=== PATIENT | male | born 1945 | race Caucasian/White ===

== ENCOUNTER 2023-08-12 20:54 | Emergency (ER) | payer OTHER, SELFPAY ==
[2023-08-12 20:55] VITALS: BP 131/78
[2023-08-12 21:11] LABS: % Basophils 1.2 % (0-2); % Eosinophils 0.5 % (0-6); % Immature Granulocytes 0.3 % (0-0.5); % Lymphocytes 12.4 % (20.5-51.1); % Monocytes 7.1 % (1.7-9.3); % Neutrophils 78.5 % (42.2-75.2); Absolute Basophils 0.2 10^3/uL (0-0.2); Absolute Eosinophils 0.1 10^3/uL (0-0.7); Absolute Immature Granulocytes 0.1 10^3/uL (0-0.05); Absolute Lymphocytes 1.8 10^3/uL (1.2-3.4); Absolute Neutrophils 11.4 10^3/uL (1.4-6.5); Hematocrit 43.3 % (39.0-52.0); Hemoglobin 15.4 g/dL (13.0-18.0); Mean Corp Hgb Conc. 35.6 g/dL (33.0-37.0); Mean Corpuscular Hgb 28.8 pg (27.0-31.0); Mean Corpuscular Volume 80.9 fL (80.0-94.0); Nucleated Red Blood Cells % 0 % (-); Platelet Count 306 10^3/uL (130-400); Red Blood Cell Count 5.35 10^6/uL (4.70-6.10); Red Cell Dist. Width 12.9 % (11.5-14.5); White Blood Cell Count 14.5 10^3/uL (4.8-10.8)
[2023-08-12 21:30] LABS: ALT (SGPT) 24 U/L (0-50); AST (SGOT) 22 U/L (17-59); Albumin 4.7 g/dl (3.5-5.0); Alkaline Phosphatase 89 U/L (38-126); Blood Urea Nitrogen 15 mg/dl (9-20); Calcium 10.1 mg/dl (8.4-10.2); Carbon Dioxide 25 mmol/L (22-30); Chloride 100 mmol/L (98-107); Glucose 121 mg/dl (70-99); Potassium 4.6 mmol/L (3.5-5.1); Sodium 137 mmol/L (135-145); Total Protein 7.9 g/dl (6.3-8.2); eGFR > 60.00
[2023-08-12 21:34] VITALS: BP 149/66
[2023-08-12 22:00] VITALS: BP 178/83
--- NOTE | 2023-08-12 22:13 | ED.GENMED ---
History of Present Illness
General
Chief Complaint: Fall
Source: patient and records
Exam Limitations: none
Time Seen by Provider: 08/12/23 21:31
Nursing documentation reviewed up to this point in time: agreed with
Travel History
Have you had any contact with someone who has COVID-19?: No
Do you have any symptoms of coronavirus? Fever > 100 degrees, chills, cough, shortness of breath, sore throat, loss of taste or smell, muscle aches, or headache?: No
History of Present Illness
History of Present Illness:
78-year-old male with a past medical history of hypertension, CVA, alcohol abuse who presents to the emergency room via EMS for evaluation after a fall. Patient apparently was walking on the sidewalk and had a witnessed trip and fall by bystander.
He says he fell down to his left knee and struck his knee on the ground. Apparently was witnessed having difficulty bearing weight on the left leg and EMS was called to the scene. Patient says he has some mild pain in the left knee but denies any
other complaints. He says he did not hit his head and denies any headache. He denies any nausea. He denies any chest pain, back pain, neck pain or abdominal pain. Denies any numbness or weakness in his extremities. He denies being on blood
thinners.
Past History
Past History
ED Past Medical History: CVA and HTN
Social History
Tobacco: Smoker
Alcohol: Chronic alcoholic
Drug: None
Living: with family
Review of Systems
Review of Systems
All Other Systems: ROS reviewed and negative except as documented in HPI and ROS
Respiratory: Denies trouble breathing
Cardiac: Denies chest pain
ABD/GI: Denies abdominal pain
: Denies flank pain
Musculoskeletal: Reports joint pain (Left knee pain); Denies neck pain or back pain
Neurological: Denies dizzy, headache, weakness or numbness
Phy Exam
Physical Exam
Physical Exam:
General: Awake, alert, oriented to person and place but was confused about time; no acute distress
Head: Normocephalic, atraumatic
Eyes: Conjunctiva normal, EOMI, pupils equal round reactive to light bilaterally
Throat: Airway intact, handling secretions
Neck: Trachea midline, no cervical spine tenderness
Lungs: Clear to auscultation bilaterally, no wheezing, rales, rhonchi
Heart: Regular rate and rhythm, no murmurs, gallops, or rubs; no chest wall tenderness
Abd: Soft, non distended, nontender
Back: No signs of trauma to the back or flank, no tenderness in the thoracic or lumbar spine
Neuro: Cranial nerves grossly intact, speech fluid
Skin: Minor abrasion of the left knee
Extremities: Patient has minor left knee abrasion but no joint effusion or swelling and no significant hematoma; he has some very mild patellar tenderness but no joint line tenderness and again no joint effusion, full range of motion of the left
knee to extremes of flexion and extension with minimal discomfort; he has no pain or tenderness in the rest of his extremities and has good pulses in all extremities
Scores
Heart Failure Risk
Heart Failure Risk Score: Not Applicable
Heart Score for Chest Pain Patients
STEMI patient?: Not applicable
Withdrawal Assessment of Alcohol
Withdrawal Assessment Completed?: Not applicable
Course
Orders/Labs/Results
Orders:
Orders
08/12/23 21:06
Alcohol Urgent
Complete Blood Count/With Diff Urgent
Comprehensive Metabolic Panel Urgent
08/12/23 21:50
CR Knee - Left 4 Or More View* Urgent
Comment:
Reason For Exam: fall onto knee
08/12/23 21:51
Electrocardiogram (*1) Urgent
Reason for Study: Fatigue / Weakness
CT Head W/o Iv Contrast Urgent
Comment:
Reason For Exam: fall, confused
EKG- Treatment ONCE
08/12/23 22:14
Add On- LAB Urgent
Tests Added?: alcohol
Abnormal Lab Results
08/12/23
21:06
WBC 14.5 H 10^3/uL
(4.8-10.8)
Abs Immat Gran (auto) 0.1 H 10^3/uL
(0-0.05)
Absolute Neuts (auto) 11.4 H 10^3/uL
(1.4-6.5)
Absolute Monos (auto) 1.0 H 10^3/uL
(0.1-0.6)
Neutrophils % 78.5 H %
(42.2-75.2)
Lymphocytes % 12.4 L %
(20.5-51.1)
Glucose 121 H mg/dl
(70-99)
08/12/23 21:06
08/12/23 21:06
Vital Signs
Initial and Last Documented VS:
Initial Vital Signs
Temp Pulse Resp BP Pulse Ox
36.6 C 105 19 131/78 95
08/12/23 20:55 08/12/23 20:55 08/12/23 20:55 08/12/23 20:55 08/12/23 20:55
Last Documented Vital Signs
Temp Pulse Resp BP Pulse Ox
36.6 C 105 19 131/70 96
08/12/23 20:55 08/12/23 20:55 08/12/23 20:55 08/12/23 23:00 08/12/23 22:44
MDM/Problems Addressed
Differential Diagnosis Includes:
Knee pain: Contusion, fracture somewhat less likely
MDM/Problems Addressed:
78-year-old male presents for evaluation after a minor trip and fall witnessed by bystander with minor left knee injury. No other injuries reported. He is tachycardic but otherwise normal vitals. Exam as above. He had lab work sent off including
a CBC which showed a slight leukocytosis but was otherwise unremarkable, CMP within acceptable range. Added on alcohol level as he was slightly confused about month and year�unclear if this is baseline with history of chronic alcohol abuse or if he
could be acutely intoxicated (clinically does not seem markedly intoxicated). Add on CT head. Check x-ray of the knee. Will try to reach out to family. Monitor closely reassess at the above.
Reviewed records from prior visits and it appears the patient has had very similar presentations in the past including this mild confusion about month/year�most recently was here in 2020 and had the same presentation with a minor fall, thought the
year was 1971. Was intoxicated at that time ultimately discharged home after observation. Awaiting CT and x-ray, alcohol level. Will continue to monitor.
Reviewed personal contacts with patient for future phone calls:
Maurice (son): [phone] // [phone]
Lanie (ex and long time friend): [phone]
Markus (friend/neighbor): [phone]
CT head no acute pathology. X-ray of the knee shows no acute fracture on my review. Patient was able to get up from the bed and weight-bear using his cane without any limp or assistance and said he had no pain. He is awake and alert only slightly
confused about the year which I suspect is likely his baseline, does not seem to be acutely confused and is asking when he can go home. I do not think he is safe to navigate home on his own and I think family should be involved in
disposition/pickup. Unfortunately I was not able to reach his son�no answer on repeated attempts. I was however able to speak to Lanie at the number listed above�she confirmed that he does have some mild dementia and that the mental status I
described here is baseline. Unfortunately she was in [place] and has not been picked up. She tried to reach out to son/[id number] unsuccessfully; will hold patient here until able to reach family for pickup.
Chronic conditions affecting care:
Alcohol use
*Radiology
Radiology exam reviewed: radiology read reviewed
*Pulse Oximetry
Patient hypoxic: no
*EKG
Interpreted by ED Provider?: Yes
Heart Rate: 94
Rate: normal
Rhythm: sinus
[place]: normal axis
Interval: normal interval
QRS Pattern: normal QRS
Ischemia: no ischemia
*Critical Care Note
Total Time (30-74mins, 75-104mins- exclusive of procedures): Not Applicable
Data Reviewed
Source: patient, records and ambulance crew
ED Attending Note
-
Portions of this chart may have been created with voice recognition software.� Occasional wrong word or��sound alike� substitutions may have occurred due to the inherent limitations of voice recognition software.
Discharge Plan
Departure
Patient Disposition: Home (Routine Discharge)
Date of Disposition: 08/13/23
Time of Disposition: 00:37
Admit to doctor: CALL SON FOR PICKUP IN AM ([phone])
Patient with high blood pressure during this ER visit?: No
Discharge Problem:
Abrasion of knee, Contusion of knee
Instructions: Skin Abrasions (DC)
Prescriptions:
No Action
Unobtainable
0
Referrals:
UNKNOWN - PT DOES,NOT KNOW [Family Provider] -
Activity Restrictions/Additional Instructions:
Thank you for visiting the Emergency Department at [facility].
1. Please schedule a follow up appointment as directed. Call first thing tomorrow morning to make an appointment.
2. If indicated, please take your medications as instructed and indicated on discharge paperwork.
3. If any of your symptoms do not improve, or persist, or become more severe within 6-12 hours, please return to the emergency department for further care.
4. Please return to the emergency department if you develop a headache, neck pain/stiffness, fever greater than 100.4F, chest pain, shortness of breath, persistent nausea, vomiting, slurred speech, difficulty walking, numbness/tingling, weakness,
signs of infection or any other symptoms that are worrisome to you.
Please call [phone] if you have any questions.
Interventions
Interventions:
*Risk Screen - Suicide Last Done: 08/12/23 22:00
*General Assessment Last Done: 08/12/23 20:58
*Neglect/Abuse Screening Last Done: 08/12/23 22:00
ED- Fall Risk Assessment Last Done: 08/12/23 22:46
*ED COVID-19 Vaccine History Last Done: 08/12/23 20:58
ED-Musculoskeletal Assessment Last Done: 08/12/23 23:03
ED- Neurological Assessment Last Done: 08/12/23 23:03
ED-Skin Assessment Last Done: 08/12/23 23:03
Discharge Date and Time
Print Language: ESTONIAN
[2023-08-12 22:56] LABS: Alcohol None Detected
[2023-08-12 23:00] VITALS: BP 131/70
[2023-08-13 07:34] VITALS: BP 164/65
== END 2023-08-13 09:42 | disposition home or self-care (01) ==
LOC: EMR 20:54
PROVIDERS: Student in an Organized Health Care Education/Training Program; EMERGENCY PHYSICIAN Emergency Medicine
DX: S80.212A Abrasion, left knee, initial encounter (principal); S80.02XA Contusion of left knee, initial encounter; W01.0XXA Fall on same level from slipping, tripping and stumbling without subsequent striking against object, initial encounter; I10 Essential (primary) hypertension; F17.200 Nicotine dependence, unspecified, uncomplicated; F03.A0 Unspecified dementia, mild, without behavioral disturbance, psychotic disturbance, mood disturbance, and anxiety
CPT/HCPCS: 99285; 70450; 73564; 80053; 82077; 85025; 93005

== ENCOUNTER 2023-08-15 12:15 | Inpatient (IN) | payer OTHER, SELFPAY ==
[2023-08-14 23:04] VITALS: BP 167/82; BMI 25.2
[2023-08-14 23:07] VITALS: BP 167/82
[2023-08-14 23:22] LABS: % Basophils 1.3 % (0-2); % Eosinophils 0.7 % (0-6); % Immature Granulocytes 0.5 % (0-0.5); % Lymphocytes 11.3 % (20.5-51.1); % Monocytes 7.1 % (1.7-9.3); % Neutrophils 79.1 % (42.2-75.2); Absolute Basophils 0.2 10^3/uL (0-0.2); Absolute Eosinophils 0.1 10^3/uL (0-0.7); Absolute Immature Granulocytes 0.1 10^3/uL (0-0.05); Absolute Lymphocytes 1.7 10^3/uL (1.2-3.4); Absolute Monocytes 1.1 10^3/uL (0.1-0.6); Absolute Neutrophils 11.7 10^3/uL (1.4-6.5); Hematocrit 42.9 % (39.0-52.0); Mean Corpuscular Hgb 28.6 pg (27.0-31.0); Mean Corpuscular Volume 81.7 fL (80.0-94.0); Mean Platelet Volume 8.9 fL (7.4-10.4); Nucleated Red Blood Cells % 0 % (-); Platelet Count 248 10^3/uL (130-400); Red Blood Cell Count 5.25 10^6/uL (4.70-6.10); Red Cell Dist. Width 12.8 % (11.5-14.5); White Blood Cell Count 14.7 10^3/uL (4.8-10.8)
[2023-08-14 23:34] LABS: ALT (SGPT) 18 U/L (0-50); AST (SGOT) 25 U/L (17-59); Albumin 4.7 g/dl (3.5-5.0); Alkaline Phosphatase 71 U/L (38-126); Blood Urea Nitrogen 17 mg/dl (9-20); Calcium 9.6 mg/dl (8.4-10.2); Carbon Dioxide 22 mmol/L (22-30); Chloride 97 mmol/L (98-107); Estimated Creatinine Clearance 63 ml/min; Glucose 100 mg/dl (70-99); Potassium 3.9 mmol/L (3.5-5.1); Sodium 134 mmol/L (135-145); Total Bilirubin 0.9 mg/dl (0.2-1.3); Total Protein 7.8 g/dl (6.3-8.2); eGFR > 60.00
[2023-08-14 23:41] LABS: Alcohol 16 mg/dl
[2023-08-15] VITALS (22 sets, daily range): BP systolic 125–171; BP diastolic 62–107; PULSE 74–75; O2SAT 98
--- NOTE | 2023-08-15 06:23 | ED.GENMED ---
History of Present Illness
General
Chief Complaint: Change in Mental Status
Source: patient, ambulance crew, previous radiology exam (Unremarkable x-ray of the knee August 13, 2023. CT of the head August 13, 2023 showing old lacunar infarcts and moderate cortical atrophy similar and unchanged from previous CT September 2020) and
previous hospital records (ED visit from 2 days ago with somewhat similar complaints although at that time had tripped and fallen with abrasion left anterior knee.)
Exam Limitations: none
Time Seen by Provider: 08/15/23 04:13
Nursing documentation reviewed up to this point in time: agreed with
Travel History
Have you had any contact with someone who has COVID-19?: No
Do you have any symptoms of coronavirus? Fever > 100 degrees, chills, cough, shortness of breath, sore throat, loss of taste or smell, muscle aches, or headache?: No
History of Present Illness
History of Present Illness:
This is a 78-year-old gentleman who resides independently in [place] the [address]. He has history of hypertension, previous CVAs and admits to near daily alcohol consumption and frequent visitor of local [employer].
He states he was at a local bar throughout the evening tonight and admits to consuming only 3 beers throughout the evening. He was sent to the ED by EMS with concern for confusion and generalized weakness. Patient denies fall. He is unsure why he
was brought to the ED but admits that 'I like it here, you all are nice'
He was evaluated in this ED just 2 and half days ago where he suffered a trip and fall injuring his left anterior knee. He was noted to be mildly confused at that time as well along with similar mild confusion during ED visit September 2020 and March
2019.
Left knee x-ray was unremarkable and CT of the head shows old lacunar infarcts, atrophy but stable and unchanged from previous CAT scan.
He has been ambulating with cane assistance and denies recurrent falls since that fall 3 days ago.
He denies headache, denies neck nor back pain, no chest pain or coughing or shortness of breath.
He generally receives a ride from a friend from his home in [place] to this area locally.
Past History
Past History
ED Past Medical History: CVA and HTN
ED Past Surgical History: Orthopedic (Hand surgery)
Social History
Tobacco: Smoker
Alcohol: Chronic alcoholic
Drug: None
Living: with family
Employment: Retired
Family History
Family History: Other (Noncontributory)
Phy Exam
Physical Exam
Physical Exam:
GENERAL: Elderly gentleman is bright and alert, pleasant, appears in no acute distress. Oriented x 2. He knows that he is in the ER but answers January when asked what month we are in.
EYE: pupils equal and reactive. anicteric. The head is normocephalic, atraumatic.
NECK: Supple, nontender, no meningismus, no significant adenopathy.
ENT: posterior pharynx is clear, oral mucosa is moist. TM clear b/l, nares patent.
CARDIAC: Regular rate and rhythm. no murmur.
LUNGS: Clear breath sounds bilaterally, no acute respiratory distress, no wheezes/rales/rhonchi
ABDOMEN: Soft, nondistended, without focal tenderness, no r/g, normoactive BS.
NEUROLOGICAL: Alert and oriented x2, no focal neuro deficits.
SKIN: Warm and dry, normal color, No rash.
MUSCULOSKELETAL: No C/C/E. peripheral pulses are full and equal b/l. There is a superficial subacute abrasion left anterior knee that is dry and intact. No soft tissue swelling or surrounding erythema. Very minimal local tenderness to palpation.
No joint effusion. Full knee range of motion without difficulty nor pain.
PSYCH: Normal and appropriate interaction.
Course
Orders/Labs/Results
Orders:
Orders
08/14/23 23:14
Alcohol Urgent
Complete Blood Count/With Diff Urgent
Comprehensive Metabolic Panel Urgent
08/15/23 04:16
Urinalysis Reflex To Culture Urgent
08/15/23 04:27
CT Head W/o Iv Contrast Urgent
Comment:
Reason For Exam: confusion, gen weakness
08/15/23 06:18
Ambulate Patient-Treatment ONCE
Abnormal Lab Results
08/14/23
23:14
WBC 14.7 H 10^3/uL
(4.8-10.8)
Abs Immat Gran (auto) 0.1 H 10^3/uL
(0-0.05)
Absolute Neuts (auto) 11.7 H 10^3/uL
(1.4-6.5)
Absolute Monos (auto) 1.1 H 10^3/uL
(0.1-0.6)
Neutrophils % 79.1 H %
(42.2-75.2)
Lymphocytes % 11.3 L %
(20.5-51.1)
Sodium 134 L mmol/L
(135-145)
Chloride 97 L mmol/L
(98-107)
Glucose 100 H mg/dl
(70-99)
08/14/23 23:14
08/14/23 23:14
Vital Signs
Initial and Last Documented VS:
Initial Vital Signs
Temp Pulse Resp BP Pulse Ox
97.9 F 89 26 167/82 98
08/14/23 23:04 08/14/23 23:04 08/14/23 23:04 08/14/23 23:04 08/14/23 23:04
Last Documented Vital Signs
Temp Pulse Resp BP Pulse Ox
97.9 F 92 22 154/72 96
08/14/23 23:04 08/15/23 05:00 08/15/23 05:00 08/15/23 05:00 08/15/23 05:00
MDM/Problems Addressed
Differential Diagnosis Includes:
Patient [place] from local tavern with concern for confusion. No report of fall nor syncope.
Admits to consuming 3 beers today and admits to frequent, near daily alcohol consumption.
He is mildly confused, answers January when asked what month we are and but similar mild confusion noted 3 days ago as well as 2020.
No focal neurodeficits.
I suspect an element of dementia.
Other consideration is acute/subacute CVA. ETOH withdrawal.
Labs show mildly elevated white blood cell count, similarly elevated 3 days ago. He is afebrile. Chemistries are unremarkable and EtOH is quite low at 16. There is currently no evidence of alcohol withdrawal.
Due to fall 3 days ago will recheck CT assess for potential late traumatic findings.
If unremarkable we will plan to ambulate with patient's cane.
Chronic conditions affecting care: HTN, Neurological disorder and Other (Chronic alcohol use)
Acute Exacerbation and/or Progression of Chronic Illness: Neurological disorder
*Radiology
Radiology exam reviewed: radiology read reviewed
*Pulse Oximetry
Patient hypoxic: no
*Cooky Machine Operator Interpretation
Rate: normal
Interpretation: normal
Rhythm: sinus
*Critical Care Note
Total Time (30-74mins, 75-104mins- exclusive of procedures): Not Applicable
Update Note
Update Note:
08/15/2023 0720 AM
Patient remains bright and alert, offers no complaints.
He remains mildly confused but easily conversant.
He continues to say he resides in [place] but cannot recall how he got to the [place] [facility], other than he walked there.
He is currently unable to walk. Requires 2 nurses to assist him to stand and when standing he is very unsteady.
CT of the head unchanged from 2 days ago.
Due to acute ambulatory dysfunction, inability to walk accompanied with moderate confusion, there is significant concern for acute/subacute CVA.
Will admit to hospitalist service and consider neurology evaluation.
ED Attending Note
-
Portions of this chart may have been created with voice recognition software.� Occasional wrong word or��sound alike� substitutions may have occurred due to the inherent limitations of voice recognition software.
Discharge Plan
Departure
Patient Disposition: Admit
Date of Disposition: 08/15/23
Time of Disposition: 07:35
Admit to: Med/Surg
Presentation/result/management discussed w/ accepting MD/DO: Hospitalist
Condition: Fair
Discharge Problem:
Acute on chronic alteration in mental status, Generalized weakness, acute inability to ambulate
Prescriptions:
No Action
Unobtainable
0
Referrals:
UNKNOWN - PT DOES,NOT KNOW [Family Provider] -
Interventions
Interventions:
*Risk Screen - Suicide Last Done: 08/14/23 23:08
*General Assessment Last Done: 08/14/23 23:08
*Neglect/Abuse Screening Last Done: 08/14/23 23:08
*ED COVID-19 Vaccine History Last Done: 08/14/23 23:08
ED- Pulmonary Assessment Last Done: 08/14/23 23:15
ED- Neurological Assessment Last Done: 08/14/23 23:15
ED- Cardiac Assessment Last Done: 08/14/23 23:15
Discharge Date and Time
Print Language: URDU
--- NOTE | 2023-08-15 08:51 | PHANOTE ---
Patient noted to be obtunded on interview for completion of medication reconciliation. Patient did report that he takes no routine [daily medications] at home. He stated that he believes that he has a PCP; however, followed up with the statement, 'I
think he may have .' Reviewed prescription fills on [facility] and the only medication filled wa sildenafil 100mg daily prn #6 on 04/04/23. Reviewed eCW to obtain prescription history with no information noted. Contacted son Chaitanya
[[phone]], listed in medical record as car salesperson-no answer.
--- NOTE | 2023-08-15 09:03 | HPS.HSE ---
Addendum entered and electronically signed by Dania Bonner MD 08/15/23 14:31:
further history obtained from son and son updated on MRI findings
patient spends time in bars but denies significant alcohol use
- will change thiamine to bID given finding of CVA explains symptoms
Original Note:
Family Physician
-
Family Physician: NOT KNOW UNKNOWN - PT DOES
Chief Complaint
-
confusion and weakness
History of Present Illness
Mr. Chaitanya Cuellar is a 78 yo man with hx HTN, prior CVA, daily alcohol use who brought into the ER by EMS for confusion and generalized weakness. He had spent the evening at a bar, reportedly drank 3 beers.
Patient unable to provide a good history. Per ER Note: 'He was evaluated in this ED just 2 and half days ago where he suffered a trip and fall injuring his left anterior knee. He was noted to be mildly confused at that time as well along with
similar mild confusion during ED visit September 2020 and March 2019.'
Patient currently denies pain. He is telling me his left side feels weaker. He stated he was at [facility] and the year was 1989. No headache. No chest pain. Per RN, he ate all of his breakfast.
Medical History
Past Medical History
Past Medical History: Reports Other ( HTN, prior CVA, daily alcohol )
Past Surgical History: Reports Other
Social History
Tobacco: Smoker
Alcohol: Chronic Alcoholic
Family History
Family History: Not pertinent
Allergies / Home Medications
Allergies reflects when Allergies were last updated in [employer].
Home Medications with original date entered in [employer]
Allergy/Medication List:
Allergies
Allergy/AdvReac Type Severity Reaction Status Date / Time
No Known Allergies Allergy Unverified 09/18/20 20:21
Home Medications
No Meds [No Current Medications] 08/15/23
Review of Systems
-
Unable to obtain full review of systems at this time due to: Other (patient confused )
History Source: Patient
Physical Exam
Vital Signs
Vital Signs
Temp Pulse Resp BP Pulse Ox
97.9 F 72 22 144/93 98
08/14/23 23:04 08/15/23 08:00 08/15/23 08:00 08/15/23 08:00 08/15/23 08:00
Physical Exam
General: Other (disheveled appearing, chronically ill appearing )
HEENT: PERRLA
Respiratory: Clear; No Wheezes
Cardiac: S1/S2 and Regular Rhythm
GI: Soft and Non Tender
Musculoskeletal: No Edema
Skin: Warm and Dry; No Rash
Neuro: Awake, Alert, Oriented (x1 did not know place or year ) and Other (KIARA, EOMI, no facial asymmetry; 4/5 weakness LUE compared to right 5/5 strenth; 5/5 strength foot plantar and dorsiflexion)
Psych: Calm
Laboratory Results
-
08/14/23 23:14
08/14/23 23:14
Laboratory Results
Total Bilirubin 0.9 mg/dl (0.2-1.3) 08/14/23 23:14
AST 25 U/L (17-59) 08/14/23 23:14
ALT 18 U/L (0-50) 08/14/23 23:14
Alkaline Phosphatase 71 U/L (38-126) 08/14/23 23:14
Data Reviewed
-
Diagnostic Radiology: Report Reviewed by me
Lab Data: Labs Reviewed by me
Impression/Plan
-
Mr. Chaitanya Cuellar is a 78 yo man with hx HTN, prior CVA, daily alcohol use who presents to the ER after spent evening at a bar and found to have confusion and weakness. Patient with alcohol level 16, not in [place] withdrawal. With report of left
sided weakness, confusion and inability to stand concern raised for CVA.
Triage VS: T 97.9, P 89, RR 26, BP 167/82, SpO2 98%
LABS: WBC 14.7, Hg 15.0, PLT 248, Na 134, K+ 3.9, Cl 97, BUN 17, Cr 0.9, Glucose 100, liver enzymes WNL, Alc 16
In ER patient was very unsteady on feet requiring 2 RN assist to stand at bedside
Altered Mental Status
Ambulatory Dysfunction
Weakness
-admit to observation
-add on TSH, B12, Folate
-F/U UA
-start high dose thiamine
-neuro checks
-MRI (if positive will pursue additional work-up and consult neuro)
-PT/OT/ST
-start asa/statin for now
Alcohol Use
-F/U Mag, Phos
-IV Thiamine/folate
-MSAS scoring
DVT PPx lovenox subQ
FULL CODE
[2023-08-15] MEDS: LOW STRENGTH ASPIRIN 162 MG PO (09:51)
[2023-08-15 09:56] LABS: Magnesium 2.1 mg/dl (1.6-2.3); Phosphorus 3.8 mg/dl (2.5-4.5)
[2023-08-15] MEDS: THIAMINE INJECTION 255 MG IV (10:11)
[2023-08-15 10:26] LABS: Acetaminophen < 10 ug/ml (10-30); Salicylate < 1.0 mg/dl (2.0-20.0)
[2023-08-15 12:14] LABS: TSH 0.88 uIU/ml (0.47-4.68)
[2023-08-15 12:49] LABS: Folate > 20.0 ng/ml (2.76-20); Vitamin B12 623 pg/ml (239-931)
--- NOTE | 2023-08-15 12:50 | CON.NEURO4 ---
Addendum entered and electronically signed by Sadi Arambula MD 08/15/23 14:56:
I saw and evaluate the patient I reviewed the note by Ivania og agree with the findings with the following comments:
78-year-old male with a past medical history of alcohol abuse, hypertension, previous ischemic stroke presented to hospital apparently brought in from the bar for generalized weakness he also had an ED visit 2 days ago after a fall. Patient does
not have much recollection to recent events, unclear on whether or not has been taking any everyday medications. Alcohol level performed in the ED 08/13 was 16. Patient denies any pain at this time no tremor.
Neurologic examination shows some confusion and disorientation, psychomotor slowing and does not always obey commands consistently
Cranial nerve examination shows some mild dysarthria
Motor examination shows some decreased strength on the left leg relative to the right leg, left leg still at least 3/5 hip flexion but right leg lifts in a much more brisk manner off the bed.
MRI brain shows an acute infarction in the right WILFREDO territory that explains confusion as well as left leg weakness.
Assessment: Acute ischemic stroke in the right anterior cerebral artery territory producing some left leg dysarthria. Additionally had some mild alcohol intoxication in the ED and appears to have frequent alcohol use at risk for withdrawal and
other complications of chronic alcohol use. Unclear details on the previous stroke he has had.
Recommendations
-Check carotid ultrasound
-Monitor on cardiac telemetry and check transthoracic echocardiogram
-Aspirin 81 mg daily monotherapy, going to avoid DAPT therapy given alcohol use and risk for GI bleeding as well as falls
-Check lipid panel and hemoglobin A1c
-Goal normoglycemia
-Provide thiamine and folate IV monitor for signs of alcohol withdrawal
-Speech physical therapy occupational therapy evaluations
-Atorvastatin 40 mg daily LDL goal less than 70
Original Note:
Consultation - Neurology 4
-
CONSULTING PHYSICIAN: Dr. Arambula
REFERRING PHYSICIAN: Dr. Dania Bonner
DICTATED BY: SHANTEL Marrero
DATE/TIME OF REQUEST: 08/15/2023
DATE/TIME OF CONSULTATION: 08/15/2023
Reason for Consultation: acute stroke
History of Present Illness:
Is a 78-year-old male patient with a past history of hypertension prior stroke and daily alcohol use. HPI obtained from medical record as patient poor historian. Apparently the patient was seen in the ER about 2 days ago after a fall. He was
noted tripping and injuring his left knee. He was evaluated at the [facility] emergency department and released. Some mild confusion was noted at that time. After speaking with family they have stated he has chronic mild confusion. CT head on
08/12/2021 with no acute abnormality. Chronic strokes noted. Last evening (08/14/2023) patient was brought back to the ER for generalized weakness. He has spent the evening at the bar apparently had at least 3 drinks and was noted to have
difficulty with ambulation. After evaluation patient was to be discharged but was still unable to ambulate. CT of the head on 08/15/2023 with no acute intracranial abnormality. Mild diffuse cortical atrophy. Stable old lacunar infarcts in the
right thalamus in the genu of the internal capsule on the left. MRI brain 08/15/2023 showed nonhemorrhagic acute/subacute infarct involving the right centrum semiovale/parietal lobe. It is unclear if he takes any daily aspirin or cholesterol
medication. ETOH 16, Na 134.
Past Medical History: HTN, prior stroke, daily alcohol
Past Surgical History: unknown
Social History: Current smoker, chronic alcohol use
Family History: Unobtainable
Allergies: No known drug allergies
Home Medications: Unknown
Review of Symptoms:
Patient denies any fever, headache, chest pain, shortness of breath, GI or symptoms.
Vital Signs: see below
Physical Exam:
The patient is afebrile, heart sounds S1 and S2 are regular no dyspnea noted.
NIH Stroke Scale:
3 points, unable to state month or age, and left upper extremity ataxia
Neurologic Examination:
The patient is awake, alert and oriented to self. He is able to follow commands, unable to answer questions appropriately. There is no aphasia or dysarthria. On cranial nerve assessment, pupils are 3 mm bilateral, round and reactive to light and
accommodation. Visual العلي are full. Extraocular movements are intact. Facial sensations are intact and bilaterally symmetrical, there is no facial asymmetry. Hearing is intact bilaterally to normal conversation volume. Tongue palate and uvula are
midline. Sternocleidomastoid strengths are full bilaterally. Motor strengths are 5/5 bilateral upper and lower extremities on medical research [place] scale. There is no drift or involuntary movement noted. Deep tendon reflexes are 3+ bilateral
upper and lower extremities and Babinski is absent bilaterally. Sensations of light touch, temperature intact, vibration reduced distally bilaterally. There was no extinction noted on double simultaneous stimulation. Coordination reduced left finger
to nose bilaterally.
Lab Results: see below
Neuro Imaging:
CT head 08/12/2023
There are no acute intracranial abnormalities.
There is an old 6 mm lacunar infarct in the anterior aspect of the right thalamus
There is an old 1 cm lacunar infarct at the genu of the internal capsule on the left
There is moderate diffuse cortical atrophy with moderate nonspecific white matter changes as described above.
CT of the head on 08/15/2023
No acute intracranial abnormality. Mild diffuse cortical atrophy. Stable old lacunar infarcts in the right thalamus in the genu of the internal capsule on the left.
MRI brain 08/15/2023
Nonhemorrhagic acute/subacute infarct involving the right centrum semiovale/parietal lobe.
YUSUF WOLFE is a 78 year old M who has presented to the hospital with confusion and ambulatory dysfunction likely caused by nonhemorrhagic acute/subacute infarct involving right centrum semiovale/parietal lobe.
Patient has the following risk factors for their symptoms: tobacco use, history of stroke
IV Tenecteplase/IAT candidacy-low NIH score
Recommendations:
-reviewed MRI brain with acute stroke
-start aspirin 81 mg, avoiding dual antiplatelet therapy due to history of alcoholism
-Atorvastatin 40 mg started check LDL
-Check hemoglobin A1c
-Will order carotid ultrasound
-Will order echo
-PT/OT speech evaluations
-Continue thiamine
-monitor for ETOH withdraw
-TSH, B12 and folate labs pending
-DVT prophylaxis
-NIHSS and neuro checks per unit guidelines
-provide stroke education
Discussed patient care with patient, nursing and neurologist.
Vital Signs and Labs
-
Vital Signs and Labs:
Vital Signs
Temp Pulse Resp BP Pulse Ox
97.9 F 74 20 143/63 96
08/14/23 23:04 08/15/23 13:00 08/15/23 13:00 08/15/23 13:00 08/15/23 13:00
Lab Results
08/14/23 23:14
08/14/23 23:14
Sodium 134 mmol/L (135-145) L 08/14/23 23:14
Potassium 3.9 mmol/L (3.5-5.1) 08/14/23 23:14
BUN 17 mg/dl (9-20) 08/14/23 23:14
Glucose 100 mg/dl (70-99) H 08/14/23 23:14
Calcium 9.6 mg/dl (8.4-10.2) 08/14/23 23:14
Phosphorus 3.8 mg/dl (2.5-4.5) 08/14/23 23:14
Vitamin B12 623 pg/ml (239-931) 08/14/23 23:14
[2023-08-15] MEDS: FOLVITE 1 MG PO (13:02)
[2023-08-15 15:41] LABS: Urine Albumin Negative (Neg - Trace); Urine Bilirubin Negative (Negative); Urine Character Clear (Clear); Urine Color Yellow; Urine Glucose Negative (Negative); Urine Ketone 1+ (Negative); Urine Leukocyte Negative (Negative); Urine Nitrite Negative (Negative); Urine Occult Blood Negative (Negative); Urine Specific Gravity 1.015 (<1.030); Urine Urobilinogen Negative (Neg - 1+)
--- NOTE | 2023-08-15 16:07 | PTOTSP ---
SHREDDING MACHINE TENDER Evaluation
Oral and pharyngeal stages of swallowing are WFL for a regular, thin liquid diet. Recommend supervision with PO intake due to cognitive status.
Patient also with signs concerning for a cognitive linguistic impairment impacting receptive and expressive language. Quick Aphasia Battery Form 1 Score = 6.68 (moderate). Multiple factors (i.e., hearing loss, history of alcohol abuse, baseline
confusion, acute stroke) are likely contributing. Mild imprecision of articulation noted which patient reported is new but he may be an unreliable historian. Patient 100% intelligible to unfamiliar listener. See patient care note for details of
speech/language testing. Further cognitive linguistic testing warranted as appropriate.
[2023-08-15 16:08] LABS: Amphetamines Negative (Negative); Barbiturates Negative (Negative); Benzodiazepines Negative (Negative); Buprenorphine Negative (Negative); Cocaine Negative (Negative); Marijuana Negative (Negative); Methadone Negative (Negative); Methamphetamines Negative (Negative); Opiates Negative (Negative); Phencyclidine Negative (Negative); Tricyclic Antidepressants Negative (Negative)
[2023-08-15] MEDS: LIPITOR 40 MG PO (18:41)
[2023-08-15] MEDS: LOVENOX 40 MG SC (18:48)
[2023-08-15] MEDS: THIAMINE INJECTION 200 MG IV (20:22)
[2023-08-16] VITALS (17 sets, daily range): BP systolic 100–187; BP diastolic 47–95; PULSE 91
[2023-08-16] MEDS: THIAMINE INJECTION 200 MG IV (08:41)
[2023-08-16] MEDS: LOW STRENGTH ASPIRIN 81 MG PO (08:43)
[2023-08-16] MEDS: FOLVITE 1 MG PO (08:44)
--- NOTE | 2023-08-16 08:50 | W.PN.HOSP.TC ---
Today's Communication/Plan
-
dispo planning
need to confirm home meds
Assessment / Plan
Assessment / Plan
Mr. Chaitanya Cuellar is a 78 yo man with hx HTN, prior CVA, daily alcohol use who presents to the ER after spent evening at a bar and found to have confusion and weakness. Patient with alcohol level 16, not in [place] withdrawal. With report of left
sided weakness, confusion and inability to stand concern raised for CVA.
In ER patient was very unsteady on feet requiring 2 RN assist to stand at bedside
BRAIN MRI 08/15/23
IMPRESSION:
Nonhemorrhagic acute/subacute infarct involving the right centrum semiovale/parietal lobe.
CAROTID US 08/15/23
IMPRESSION:
Calcified plaque identified within BOTH carotid bulbs and proximal internal carotid arteries. Any stenosis is less than 50% based upon velocity criteria.
Antegrade flow within both vertebral arteries.
Acute CVA
Altered Mental Status
Ambulatory Dysfunction
Weakness
-MRI on admission confirmed CVA
-new start asa/statin - son states he was taking aspirin at home
-neuro checks
-MRI (if positive will pursue additional work-up and consult neuro)
-PT/OT/ST - eventual SNF
HTN
-per son, patient is on Nifedipine, will bring in med list
Alcohol Use
-MSAS scoring, has not required ativan
DVT PPx lovenox subQ
FULL CODE
Anticipated Discharge: Within 24 hours
Subjective/Interval History
-
Date of Service: August 16, 2023
no new complaints
more alert, conversant today
Objective Data
-
Labs:
Laboratory Results
08/16/23
06:00
WBC Pending
Hgb Pending
Hct Pending
Plt Count Pending
Sodium Pending
Potassium Pending
Chloride Pending
Carbon Dioxide Pending
BUN Pending
Creatinine Pending
Glucose Pending
Calcium Pending
Total Bilirubin Pending
AST Pending
ALT Pending
Alkaline Phosphatase Pending
Vital Signs:
Vital Signs
Temp Pulse Resp BP Pulse Ox
98.9 F 73 15 144/72 96
08/15/23 21:46 08/16/23 08:00 08/16/23 08:00 08/16/23 08:00 08/16/23 00:05
I&O
08/15/23 08/16/23 08/17/23
06:59 06:59 06:59
Output Total 750 / 750
Balance -750 / -750
Review of Systems
-
History Source: Patient
All other systems: Reviewed and negative
Physical Exam
-
General: No Apparent Distress
HEENT: PERRLA
Respiratory: Clear to Auscultation; Negative Wheezes
Cardiac: Regular Rhythm and S1/S2
GI: Soft and Nontender
Musculoskeletal: No Edema
Neuro: Awake, Alert and Other (more conversant today, no facial asymmetry, moves all 4 extremities, mild LUE weakness left )
Psych: Calm
Data Reviewed
-
Diagnostic Radiology: Report Reviewed by me
Labs: Labs Reviewed by me
[2023-08-16 09:30] LABS: Glycohemoglobin (HgbA1c) 5.6 % (4.0-5.6)
--- NOTE | 2023-08-16 09:37 | CM ---
Addendum entered by Annetta Leon RN 08/16/23 14:39:
Cm spoke with patient's son and he is agreeable to plan.
Addendum entered by Annetta Leon RN 08/16/23 14:21:
Cm confirmed that patient has been authorized for his stay as per Amor at [facility].
[facility]
REPORT
[phone]

Addendum entered by Annetta Leon RN 08/16/23 11:44:
Amor from [facility] confirmed that [facility] has a bed for patient. [facility] is working on authorization and will update when available. Cm updated hospitalist.
Addendum entered by Annetta Leon RN 08/16/23 11:17:
[facility] is able to accept. CM spoke with Amor from [facility] to confirm that patient's son is agreeable to [facility]. Amor will call CM back to confirm bed.
Addendum entered by Annetta Leon RN 08/16/23 10:17:
[facility] cannot accept due to patient's alcohol abuse history.
Addendum entered by Annetta Leon RN 08/16/23 10:17:
Ayana at [facility] is unable to accept due to patient's insurance.
Original Note:
CM met with patient and son in the room. Patient confirmed demographics. Patient lives with son. Patient's son and patient are agreeable to placement. Patient's son stated that his mother is ill and lives in [place]. Son was requesting facilities
close to [place] so he can care for both parents . CM sent referrals to [facility], [facility], [facility] and [facility]. CM will await acceptance.
[2023-08-16] MEDS: PROCARDIA XL (EXTENDED RELEASE) 30 MG PO (10:09)
--- NOTE | 2023-08-16 11:36 | W.PN.NEURO.1 ---
Today's Communication / Plan
-
-Monitor for alcohol withdrawal continue IV thiamine and folate
-Goal normotension
-Neurologic checks NIH stroke scale
-Speech therapy physical therapy
-Aspirin 81 mg monotherapy and atorvastatin 40 mg daily
-Would recommend at least some degree of cardiac monitoring as an outpatient given embolic stroke with left atrial dilation on transthoracic echocardiogram, start with short term 1 to 2-week Holter monitoring and if negative would pursue implanted
Linq in the outpatient setting
Will follow as needed call with questions and concerns
Neuro Assessment/Plan
Assessment
78-year-old male with a past medical history of previous stroke, alcohol abuse presented to hospital via EMS with confusion and generalized weakness. Noted to have some left leg weakness more on the leg than arms, dysarthria.
MRI brain shows a right sided anterior cerebral artery ischemic stroke explaining the left sided weakness
Does not appear to be taking aspirin or antiplatelet on an every day basis
History of previous ischemic stroke unclear
Alcohol use in the ER 16
Carotid ultrasound less than 50% stenosis with some plaque seen
Transthoracic echocardiogram with mild left atrial dilation
Embolic stroke to the right anterior cerebral artery territory without obvious source
-Could be cardioembolic given alcoholism could produce atrial fibrillation, atheroembolic from aortic plaque or nonhigh-grade carotid stenosis also possible causes
Subjective/Objective
Subjective Data
Date of Service: August 16, 2023
Patient in bed, watching TV, no complaints
Objective Data
Vital Signs
Temp Pulse Resp BP Pulse Ox
98.9 F 77 15 169/76 96
08/15/23 21:46 08/16/23 10:09 08/16/23 08:00 08/16/23 10:09 08/16/23 00:05
Lab Results
08/16/23 06:00
Sodium Cancelled 08/16/23 06:00
Potassium Cancelled 08/16/23 06:00
BUN Cancelled 08/16/23 06:00
Glucose Cancelled 08/16/23 06:00
Calcium Cancelled 08/16/23 06:00
Phosphorus 3.8 mg/dl (2.5-4.5) 08/14/23 23:14
LDL Cholesterol, Calc Cancelled 08/16/23 06:00
Vitamin B12 623 pg/ml (239-931) 08/14/23 23:14
Ur Buprenorphine Negative (Negative) 08/15/23 15:25
Patient Allergies
No Known Allergies Allergy (Unverified 09/18/20 20:21)
LDL Level: >70, statin ordered
Review of Systems
-
History Source: Patient
All other systems: Reviewed and negative
Constitutional: No Symptoms
EENT: No Symptoms Reported
Respiratory: No Symptoms
Cardiac: No Symptoms
Abdomen/GI: No Symptoms
Genitourinary: No Symptoms
Musculoskeletal: No Symptoms
Skin: No Symptoms
Neuro: Weakness and Speech Problem
Endocrine: No Symptoms
Hematologic / Lymphatic: No Symptoms
Allergy / Immunology: No Symptoms
Physical Exam
-
General: Comfortable
Eyes: No Ptosis
HEENT: Normocephalic
Neck: No Bruits Bilaterally
Respiratory: Clear to Auscultation
Cardiac: Regular Rhythm
GI: Normal Bowel Sounds
Skin: Unremarkable
Extremities: No Clubbing
Psych: Confused; Negative Intact Judgement/Insight
Extended Neurological Exam
Mood & Affect: Mood Unremarkable and Affect Unremarkable
Attention Span & Concentration: No Difficulty with 2 Step Request and Other (Disoriented to exact month and date, knows in hospital, comprehension intact, difficulty with complex tasks and shows inattentive)
Memory: Reduced
Tremor: Hand Tremor Absent
Involuntary Movement: None
Speech: Dysarthric; Negative Expressive Aphasia or Receptive Aphasia
Cranial Nerve II: Left Eye: Pupillary Reactivity Unremarkable, Pupillary Size Unremarkable and Visual Manzano Intact
Cranial Nerve II: Right Eye: Pupillary Reactivity Unremarkable, Pupillary Size Unremarkable and Visual Manzano Intact
Cranial Nerves III, IV, : Extraocular Movement: Extraocular Movement Full in all Directions
Cranial Nerve VII: Facial Symmetry: Normal Facial Symmetry
Muscle Strength, Overall: Other (No pronator drift power 5/5 shoulder abduction, left leg strength improved today 4/5 left hip flexion, 5/5 right hip flexion)
Pronator Drift: No Drift in Upper Extremities
Deep Tendon Reflexes: Absent Throughout
Data Reviewed
-
CT Head: Report Reviewed and Image Reviewed
MRI Head: Report Reviewed and Image Reviewed
Carotid Ultrasound: Report Reviewed
Echocardiogram: Report Reviewed
Labs: Report Reviewed
[2023-08-16] MEDS: PROTONIX 40 MG PO (13:30)
[2023-08-16 13:58] LABS: Hematocrit 43.6 % (39.0-52.0); Hemoglobin 15.1 g/dL (13.0-18.0); Mean Corp Hgb Conc. 34.6 g/dL (33.0-37.0); Mean Corpuscular Hgb 28.1 pg (27.0-31.0); Mean Corpuscular Volume 81.2 fL (80.0-94.0); Mean Platelet Volume 9.3 fL (7.4-10.4); Platelet Count 260 10^3/uL (130-400); Red Blood Cell Count 5.37 10^6/uL (4.70-6.10); Red Cell Dist. Width 12.5 % (11.5-14.5); White Blood Cell Count 13.2 10^3/uL (4.8-10.8)
--- NOTE | 2023-08-16 14:53 | W.DS.TRANS ---
DC Summary - Primer Powder Blender Wet
-
Discharge Instructions:
Discharge Diagnosis/Procedures ischemic stroke
Diet Low Cholesterol
Activity As tolerated
Driving Restrictions No driving
Bathing Restrictions None
Other Services PT,OT,ST
Instructions:
Stand-Alone Forms:
Changes to Home Medications: Yes
Discharge Medications:
DC Medications w/original date entered in [employer]
aspirin 81 mg chewable tablet (Children's Aspirin) 81 mg PO DAILY #30 tabs 08/16/23
atorvastatin 40 mg tablet 40 mg PO HS #0 tabs 08/16/23
cholecalciferol (vitamin D3) 125 mcg (5,000 unit) tablet (Vitamin D3) 125 mcg PO DAILY 08/16/23
esomeprazole magnesium 40 mg capsule,delayed release (Nexium) 40 mg PO DAILY 08/16/23
folic acid 800 mcg tablet 0.8 mg PO DAILY 08/16/23
nifedipine 60 mg tablet,extended release 24 hr 60 mg PO DAILY 08/16/23
thiamine HCl (vitamin B1) 100 mg tablet 100 mg PO DAILY #30 tabs 08/16/23
Home Medication Changes
new start aspirin and thiamine
Pending Results: No
--- NOTE | 2023-08-16 15:38 | W.DCSUMMARY ---
Discharge Summary
Discharge Data
Date of Admission: 08/15/23
Date of Discharge: 08/16/23
-
Pending Results: No
Hospital Course
Discharging Physician : Dr. Dania Bonner
Disposition : SNF
Principal Discharge diagnosis : Acute CVA
Hospital Course :
Mr. Chaitanya Cuellar is a 78 yo man with hx HTN, prior CVA, daily alcohol use who brought into the ER by EMS for confusion and generalized weakness. He had spent the evening at a bar, reportedly drank 3 beers.
Triage vitals significant for hypertension. Labs with WBC 14.5. Head CT without acute event. Exam notable for mild left upper extremity weakness and confusion. Brain MRI ordered showing nonhemorrhagic acute/subacute infarct involving the right
centrum semiovale/parietal lobe. Carotis US with stenosis < 50%. TTE with EF 55-60%; mild atrial dilation.
Patient worked with PT, SNF recommended and he is discharged on hospital day 2. He is newly started on aspirin and is told to continue nifedipine (per son, patient has hx med non-compliance). Per neurologic recs, cardiac monitoring to be done as
outpatient. Per Dr. Arambula: 'start with short term 1 to 2-week Holter monitoring and if negative would pursue implanted Linq in the outpatient setting.' He has follow up with cardiology in a few weeks.
Son updated.
Time spent on discharge was 35 minutes.
Important imaging findings :
BRAIN MRI 08/15/23
IMPRESSION:
Nonhemorrhagic acute/subacute infarct involving the right centrum semiovale/parietal lobe.
CAROTID US 08/15/23
IMPRESSION:
Calcified plaque identified within BOTH carotid bulbs and proximal internal carotid arteries. Any stenosis is less than 50% based upon velocity criteria.
Antegrade flow within both vertebral arteries.
TTE
CONCLUSIONS
Technically difficult study; consider the use of IV echo contrast for future
studies.
Normal LV size and systolic function. LV ejection fraction visually estimated
55-60%.
Normal RV size and systolic function.
Thickened mitral valve leaflets with eccentric mild to moderate mitral
regurgitation
Aortic valve poorly visualized but appears sclerotic with mild eccentric aortic
regurgitation
Tricuspid valve poorly visualized without significant tricuspid regurgitation.
Prominent anterior fat pad present. No pericardial effusion.
No prior study available for compared
Procedure findings :
Discharge Plan
-
Patient Disposition: Skilled Nursing/SNF
Discharge Diagnosis/Procedures: ischemic stroke
Diet: Low Cholesterol
Activity: As tolerated
Driving Restrictions: No driving
Bathing Restrictions: None
Other Services: PT, OT and ST
Referrals:
Gabriel Leo MD [Active] - 08/29/23 11:20 am (Please follow up for set up of cardiac monitoring for further stroke work-up)
UNKNOWN - PT DOES,NOT KNOW [Family Provider] - in less than 1 week
Additional Discharge Medication Instructions: You are newly started on aspirin 81mg daily for stroke prevention.
Continue to take Nifedipine for hypertension to help prevent stroke.
Follow up with Dr. Leo (cardiology) to set up cardiac monitoring to rule out arrhythmia as cause of stroke.
Prescriptions:
New
aspirin [Children's Aspirin] 81 mg Tablet,Chewable
81 mg PO DAILY Qty: 30 0RF
thiamine HCl (vitamin B1) 100 mg tablet
100 mg PO DAILY Qty: 30 0RF
Continued
nifedipine 60 mg Tablet Extended Release 24hr
60 mg PO DAILY
folic acid 800 mcg Tablet
0.8 mg PO DAILY
cholecalciferol (vitamin D3) [Vitamin D3] 125 mcg (5,000 unit) Tablet
125 mcg PO DAILY
esomeprazole magnesium [Nexium] 40 mg Capsule,Delayed Release(Dr/Ec)
40 mg PO DAILY
Changed
atorvastatin 40 mg Tablet
40 mg PO HS Qty: 0 0RF
Discharge Orders:
Discharge Patient (As Directed); Ordered 08/16/23
Ordered By: Dania Bonner
Discharge Date and Time
Print Language: TONGAN
--- NOTE | 2023-08-16 16:29 | EDRN ---
Report given to Sherlyn at [facility] to Jose Luis. Pt to be transported by EMS at 8pm.
[2023-08-16] MEDS: LIPITOR 40 MG PO (21:19)
[2023-08-16] MEDS: LOVENOX 40 MG SC (21:22)
[2023-08-16] MEDS: THIAMINE INJECTION IV (23:19)
[2023-08-17 02:23] VITALS: BP 100/55
--- NOTE | 2023-08-21 10:12 | CM ---
CM faxed medication list and MAR to [facility].
== END 2023-08-17 04:30 | DRG 65 ==
LOC: ED 12:15
PROVIDERS: Emergency Medicine; ADMITTING PHYSICIAN Student in an Organized Health Care Education/Training Program; CONSULT PHYSICIAN Student in an Organized Health Care Education/Training Program; EMERGENCY PHYSICIAN Emergency Medicine
DX: I63.421 Cerebral infarction due to embolism of right anterior cerebral artery (principal); G81.94 Hemiplegia, unspecified affecting left nondominant side; I10 Essential (primary) hypertension; F10.229 Alcohol dependence with intoxication, unspecified; Y90.0 Blood alcohol level of less than 20 mg/100 ml; F17.200 Nicotine dependence, unspecified, uncomplicated; R47.1 Dysarthria and anarthria; I08.0 Rheumatic disorders of both mitral and aortic valves; R26.2 Difficulty in walking, not elsewhere classified; R41.0 Disorientation, unspecified; Z86.73 Personal history of transient ischemic attack (TIA), and cerebral infarction without residual deficits
CPT/HCPCS: 70450; 70551; 80053; 80143; 80179; 80306; 81003; 82077; 82607; 82746; 83036; 83735; 84100; 84443; 85025; 85027; 92610; 93306; 93880; 97163; A9575